=== PATIENT | female | born 1965 | race Caucasian/White ===

== ENCOUNTER → 2017-04-09 | Outpatient (CLI) | payer OTHER ==
--- NOTE | 2017-04-09 11:55 | RAD ---
CT chest without contrast 04/09/2017 Comparison: CT chest 10/23/2016. Clinical indication: Follow-up right upper lung nodular density. Technique: Multiple CT images of the chest without intravenous contrast according to standard protocol. Coronal and sagittal reformations were obtained. PQRS Compliance Statement: One or more of the following individualized dose reduction techniques were utilized for this examination: 1. Automated exposure control 2. Adjustment of the mA and/or kV according to patient size 3. Use of iterative reconstruction technique Findings: Chest: Heart size is normal without significant pericardial effusion. Coronary artery calcifications are noted. The thoracic aorta is normal in caliber with minimal scattered calcified atheromatous disease. No axillary, mediastinal or obvious hilar lymphadenopathy, however evaluation is limited due to the absence of intravenous contrast. Central airways are patent. There are scattered areas of minor pleural-parenchymal scarring in both lungs. Please described right upper lobe nodule is more ill-defined now measuring 6 mm (series 2/image 22), previously 8 mm. No new or enlarging noncalcified pulmonary nodule. No pleural effusion or pneumothorax. There are no destructive osseous lesions. Limited images of the upper abdomen: Grossly unremarkable. Impression: Interval decrease in previous described right upper lobe pulmonary nodule now measuring 6 mm, previously 8 mm, most compatible with benign infectious or inflammatory nodule. No new or enlarging pulmonary nodules.
== END | disposition home or self-care (01) ==
LOC: CT 11:12
PROVIDERS: ATTEND Internal Medicine Pulmonary Disease
DX: R91.1 Solitary pulmonary nodule (principal); I70.0 Atherosclerosis of aorta
CPT/HCPCS: 71250

== ENCOUNTER → 2019-07-03 | Outpatient (CLI) | payer OTHER ==
--- NOTE | 2019-07-03 13:40 | RAD ---
MR#: [id number] Date of Study: 07/03/2019 Ordering Physician: JEET GOODRICH Referring Physician: NIKKO POPE Tech: APPROVED REPORT Test Type: Exercise Test Indications: chest pain and dyspnea Cardiac History: Family history Medical History: See Electronic Medical Record Resting Heart Rate: 84 bpm Resting Blood Pressure: 137/69mmHg Pretest Chest Pain: None POST EXERCISE Target HR: 141 Max HR: 154 bpm Exercise duration: 4:29 min:sec, 2 Stage Exercise capacity: 7.0METs Max Blood Pressure: 170/80mmHg Blood Pressure response to exercise: Normal blood pressure response during stress. Heart Rate response to exercise: Normal Chest Pain: No. Arrhythmia: No. ST Change: No. INTERPRETATION Stress EKG Conclusion: Baseline EKG showed sinus rhythm. No ischemic changes at peak stress. No arr hythmias. Conclusion 1. Treadmill exercise stress electrocardiogram did not show any diagnostic evidence of ischemia. 2. Patient had average exercise tolerance. Signed by : Jose Enrique Carrasco, Electronically Approved : 07/03/2019 13:40:25
== END | disposition home or self-care (01) ==
LOC: NM 08:26
PROVIDERS: ATTEND Family Medicine
DX: R07.89 Other chest pain (principal); R06.00 Dyspnea, unspecified
CPT/HCPCS: 93017